=== PATIENT | male | born 1970 | race Caucasian/White ===

== ENCOUNTER 2016-07-28 16:15 | Emergency (ER) | payer BC, OTHER ==
[~2016-07-28] VITALS: Ht 170.2 cm; Wt 62.6 kg
[2016-07-28] MEDS ORDERED: LIDOCAINE 1%-EPI 1:100,000 20 ML VIAL TP ONE (17:00)
[2016-07-28 17:39] VITALS: BP 124/74
[2016-07-28] MEDS ORDERED: CEPHALEXIN MONOHYDRATE 500 MG CAPSULE PO ONE ×2 (17:43→18:00)
[2016-07-28] MEDS ORDERED: SULFAMETH/TRIMETH 800/160 MG 1 UDTAB TABLET PO ONE ×2 (17:43→18:00)
== END 2016-07-28 18:01 | disposition home or self-care (01) ==
LOC: ER 16:30
DX: M70.21 Olecranon bursitis, right elbow (principal); Y93.9 Activity, unspecified; F17.200 Nicotine dependence, unspecified, uncomplicated
CPT/HCPCS: 10060; 99283; A4606; A6402; A6403 ×2; Z7610